=== PATIENT | male | born 1980 | race Two or more races ===

== ENCOUNTER 2020-09-26 20:00 | Emergency (ER) | payer OTHER ==
[~2020-09-26] VITALS: Ht 172.7 cm; Wt 79.4 kg
== END 2020-09-26 22:27 | disposition home or self-care (01) ==
LOC: ER 20:00
DX: S81.822A Laceration with foreign body, left lower leg, initial encounter (principal); W45.8XXA Other foreign body or object entering through skin, initial encounter; Y93.89 Activity, other specified; Y92.89 Other specified places as the place of occurrence of the external cause; Y99.8 Other external cause status